=== PATIENT | male | born 1970 | race African-American/Black ===

== ENCOUNTER 2022-05-08 13:46 | Emergency (ER) | payer BC ==
[~2022-05-08] VITALS: Ht 180.3 cm; Wt 82.1 kg
[2022-05-08 13:53] VITALS: BP 131/85
--- NOTE | 2022-05-08 13:53 | NUR ---
BIBA to bed 05
[2022-05-08] MEDS ORDERED: MORPHINE SULFATE 4 MG/ML SYR IM ONE (14:45)
[2022-05-08] MEDS ORDERED: KETOROLAC 30 MG/ML VIAL IM ONE (14:45)
--- NOTE | 2022-05-08 15:29 | NUR ---
PT TAKEN TO XRAY VIA WHEELCHAIR
[2022-05-08] MEDS ORDERED: LIDOCAINE 5% 1 EA PATCH TP STA (15:58)
[2022-05-08] MEDS ORDERED: ACET-8386 PO ×2 (16:24→16:25)
[2022-05-08] MEDS ORDERED: LID5T TP ×2 (16:24→17:21)
[2022-05-08] MEDS ORDERED: DICL100G5 TP ×2 (16:24→17:21)
[2022-05-08] MEDS ORDERED: IBUP-2213 PO ×2 (16:24→17:21)
--- NOTE | 2022-05-08 17:21 | NUR ---
Patient discharged with v/s stable. Written and verbal after care instructions FOR RIB FRACTURE given and explained. Patient alert, oriented and verbalized understanding of instructions. Ambulatory with steady gait. All questions addressed prior to discharge. ID band removed. Patient advised to follow up with PMD. Rx of HYDROCODONE, DICLOFENAC, IBUPROFEN AND LIDOCAINE HYD given. Opportunity to ask questions provided and answered.
[2022-05-08 17:22] VITALS: BP 135/82
--- NOTE | 2022-05-08 17:22 | NUR ---
The patient's care was reviewed and supervised by Sheryl Rebolledo RN.
== END 2022-05-08 17:22 | disposition home or self-care (01) ==
LOC: MED 13:46
DX: S22.42XA Multiple fractures of ribs, left side, initial encounter for closed fracture (principal); I10 Essential (primary) hypertension; Z79.899 Other long term (current) drug therapy; X58.XXXA Exposure to other specified factors, initial encounter; Y93.89 Activity, other specified; Y92.89 Other specified places as the place of occurrence of the external cause; Y99.8 Other external cause status
CPT/HCPCS: 71101; 96372; 99285; J1885; J2270